=== PATIENT | male | born 1955 | race Caucasian/White ===

== ENCOUNTER 2016-10-30 23:18 | Emergency (ER) | payer MEDICARE ==
--- NOTE | 2016-10-31 01:39 | ED CLINICAL REPORT ---
Clinical Report - Physicians/Mid Levels [facility] [address] [place] [address] 10/30/2016 23:19 Patient: ARIELLA AYON Time Seen: 23:27. Arrived- By ambulance. Historian- patient and EMS personnel. HISTORY OF PRESENT ILLNESS Chief Complaint: BIZARRE BEHAVIOR. This occurred just prior to arrival. The symptoms are described as severe. The patient has been severely confused. (the patient's family report that he was recently hospitalized at [facility] for congestive heart failure. He was discharged home yesterday. His was speaking with him on the phone this evening and she said he seemed confused and was slurring his speech. She called her son went over there and her son says that he was saying odd things and did not recognize him. They're concerned that maybe he has overdosed on one of his medications. He apparently has been prescribed methadone as well as a muscle relaxant and a sleeping aid. His says that he is not always compliant with their use sometimes taking more tabletsthan he is supposed to work taking the medications more often than he ought. they are concerned that maybe he has overdosed.). REVIEW OF SYSTEMS Unobtainable due to patient's altered mental status. PAST HISTORY Problems: Possible dementia. Head Injury. Congestive Heart Failure. COPD - Chronic Obstructive Pulmonary Disease. Thrombocytopenia. Prediabetis . Hypertension . Depression . Asthma . Lumbar radicular pain . Hypotestosteronism. Back Pain. Back Injury. Medications: TiZANidine HCl Oral. Sertraline HCl Oral. Prochlorperazine Maleate Oral. Potassimin Oral. Theophylline Oral. Zofran Oral. Omeprazole Oral. Mirtazapine Oral. Metoprolol Tartrate Oral. Methadone HCl Oral. Lisinopril Oral. Furosemide Oral. CloNIDine HCl Oral. Allergies: Aspirin. Codeine. Morphine and Related. Nanproxyn. Tylenol. SOCIAL HISTORY Former smoker. FAMILY HISTORY Unable to obtain family medical history due to patient's altered mental status. ADDITIONAL NOTES The nursing notes have been reviewed. PHYSICAL EXAM Vital Signs: 10/30/2016 23:28 BP: 57/22. HR: 73. RR: 16. O2 saturation: 95%. Pain level now: 0/10. Appearance: Alert. He is somnolent, is confused, has slurred speech and appears frail and elderly. Eyes: Pupils equal, round and reactive to light. ENT: Pharynx normal. Neck: Neck supple. No meningeal signs or carotid bruit. CVS: Heart sounds normal. Respiratory: No respiratory distress. Decreased air movement. No rales or rhonchi. Abdomen: Soft and nontender. Skin: Skin warm and dry. Extremities: Bilateral 1+ pitting edema of the lower extremities involving both feet, both ankles and both lower legs. No calf tenderness. Neuro: Altered mental status: confused and disoriented to place and time. Inaccurate responses to questions and inconsistent responses to commands. Eyes open to pain. Best verbal response: inappropriate speech. Best motor response: localizes to pain. LABS, X-RAYS, AND EKG EKG: Right atrial enlargement. RBBB. Q waves in lead V1 and V2. T wave inversion in lead V1, V2, V3, V4 and V5. When compared to prior EKG, new ischemic changes present. (this is changed from a study of 25 October 2016 that was performed during his recent hospitalization at [facility].). Chest X-ray: Vascular congestion present (versus fibrosis). Mild cardiomegaly. (We'll positioned ET tube.). CT Head: No acute changes. The study was independently viewed by me. Laboratory Tests: Ammonia Level: (BIN: 10/31/2016 01:25) ( MsgRcvd 10/31/2016 01:48) Final results Test Result Flag Units (Reference) AMMONIA 17 umol/L (11-32) BNP: (BIN: 10/31/2016 00:01) ( MsgRcvd 10/31/2016 01:44) Final results Test Result Flag Units (Reference) B-TYPE NATRIURETIC PEPTIDE 719 H pg/ml (5-100) CPK: (BIN: 10/31/2016 00:01) ( MsgRcvd 10/31/2016 00:41) Final results Test Result Flag Units (Reference) CPK 61 U/L (24-260) TROPONIN I 0.11 ng/mL (0.00-1.5) TROPONIN REFERENCE RANGE:<0.1 NEGATIVE0.1-1.5 INDETERMINANT>1.5 POSITIVE ABG: (BIN: 10/31/2016 01:44) ( MsgRcvd 10/31/2016 01:58) Final results Test Result Flag Units (Reference) FIO2 30 % (20-101) ABG MODE OF DELIVERY AC MODIFIED ELAINE TEST POSITIVE? YES ABG VENT MODE AC ABG TIDAL VOLUME 500 cc ABG PATIENT RESP RATE 16 /MIN ABG RESP RATE SETTINGS 16 /MIN ARTERIAL BLOOD GAS PEEP 5 cmH2O ARTERIAL BLOOD GAS SITE RR ARTERIAL BLOOD GAS pH 7.37 (7.35-7.45) ABG PCO2 61.3 *H mmHg (35-45) ABG PO2 65.9 mmHg (60.0-80.0) ABG BASE EXCESS 8.8 *H mmol/L (-6.0--6.0) ABG HCO3 35.7 *H mmol/L (20.0-26.0) ABG TCO2 37.5 *H mmol/L (24.0-30.0) ABG LgXlX8p 76.2 H mmHg (7.0-14.0) *NOTE: Normal rangeis based on aFIO2 of 21% ABG SAT O2 92.8 L % (95.1-100.0) ABG TOTAL HEMOGLOBIN 16.2 g/dL (14.0-18.0) ABG O2 HEMOGLOBIN 90.7 L % (95.0-100.0) ABG CARBOXYHEMOGLOBIN 2.0 H % (0.5-1.5) ABG METHEMOGLOBIN 0.3 L % (0.4-1.5) ABG RHEMOGLOBIN 7.0 % ABG: (BIN: 10/31/2016 00:40) ( MsgRcvd 10/31/2016 00:42) Final results Test Result Flag Units (Reference) FIO2 100 % (20-101) ABG MODE OF DELIVERY AC MODIFIED ELAINE TEST POSITIVE? YES ABG VENT MODE AC ABG TIDAL VOLUME 500 cc ABG PATIENT RESP RATE 20 /MIN ABG RESP RATE SETTINGS 16 /MIN ARTERIAL BLOOD GAS PEEP 5 cmH2O ARTERIAL BLOOD GAS SITE RR ARTERIAL BLOOD GAS pH 7.30 L (7.35-7.45) ABG PCO2 66.7 *H mmHg (35-45) ABG PO2 499.0 *H mmHg (60.0-80.0) ABG BASE EXCESS 4.9 H mmol/L (-6.0--6.0) ABG HCO3 32.6 *H mmol/L (20.0-26.0) ABG TCO2 34.7 H mmol/L (24.0-30.0) ABG ItClU1i 134.9 H mmHg (7.0-14.0) *NOTE: Normal rangeis based on aFIO2 of 21% ABG SAT O2 100.7 H % (95.1-100.0) ABG TOTAL HEMOGLOBIN 15.2 g/dL (14.0-18.0) ABG O2 HEMOGLOBIN 99.0 % (95.0-100.0) ABG CARBOXYHEMOGLOBIN 1.7 H % (0.5-1.5) ABG METHEMOGLOBIN 0.0 L % (0.4-1.5) ABG RHEMOGLOBIN -0.7 % UA-Culture if indicated: (BIN: 10/30/2016 23:55) ( MsgRcvd 10/31/2016 00:25) Final results Test Result Flag Units (Reference) URINE COLOR YELLOW URINE APPEARANCE CLEAR URINE GLUCOSE NEGATIVE (NEGATIVE) URINE BILIRUBIN NEGATIVE (NEGATIVE) URINE KETONE NEGATIVE (NEGATIVE) URINE SPECIFIC GRAVITY 1.010 (1.010-1.030) URINE PH 5.5 (5.0-8.0) URINE PROTEIN NEGATIVE (NEGATIVE) URINE UROBILINOGEN 0.2 EU/dL (0.2-1.0) URINE NITRITE NEGATIVE (NEGATIVE) URINE BLOOD TRACE-LYSED (NEGATIVE) URINE LEUK ESTERASE NEGATIVE (NEGATIVE) URINE RBC 0-1 rbc/hpf (0-1) URINE WBC NONE SEEN wbc/hpf (0-1) URINE EPITHELIAL CELLS 0-1 EPI/hpf (0-5) URINE BACTERIA NONE SEEN (NONE SEEN) URINE COMMENT CULT NOT INDICATED URINE CULTURES ARE SET-UP BASED ON THE FOLLOWING CRITERIA:POSITIVE NITRITEPOSITIVE LEUKOCYTE ESTERASEGREATER THAN 10 WHITE BLOOD CELLSMODERATE (2+) OR GREATER BACTERIA CBC w Diff: (BIN: 10/30/2016 23:35) ( [facility] 10/30/2016 23:53) Final results Test Result Flag Units (Reference) WHITE BLOOD COUNT 9.0 K/uL (4.5-11.5) RED BLOOD COUNT 4.78 M/uL (4.50-5.90) HEMOGLOBIN 15.8 gm/dL (13.5-17.5) HEMATOCRIT 48.1 % (41.0-53.0) MEAN CELL VOLUME 101 H fL (80-100) MEAN CORPUSCULAR HGB 33 pg (26-34) MEAN CORPUSCULAR HGB CONC 33 g/dL (31-37) RED CELL DISTRIBUTION WIDTH 16.0 H % (11.6-14.8) PLATELET COUNT 118 L K/uL (150-400) LYMPH % 22.7 L % (25-40) MONO % 4.4 % (3-14) GRANULOCYTE % 72.9 Urine Drug Screen: (BIN: 10/30/2016 23:55) ( [facility] 10/31/2016 00:21) Final results Test Result Flag Units (Reference) AMPHETAMINE/METHAMPHETAMINE NEGATIVE (NEGATIVE) BARBITURATE NEGATIVE (NEGATIVE) BENZODIAZEPINE NEGATIVE (NEGATIVE) CANNABINOID NEGATIVE (NEGATIVE) COCAINE NEGATIVE (NEGATIVE) ECSTASY NEGATIVE (NEGATIVE) METHADONE NEGATIVE (NEGATIVE) OPIATE NEGATIVE (NEGATIVE) The urine drug screen is a qualitative screening test fordrug overdose and abuse. All screen results should beconsidered as presumptive.Drugs screened for are as follows:BenzodiazepinesCocaineAmphetamines/MetamphetaminesTHC (Tetrahydrocannabinol)OpiatesBarbituratesEcstasyMethadonePositive results are unconfirmed. For confirmation, notifythe lab for the specimen to be sent to the reference lab.All confirmations must be performed by a differentmethodology.The ingestion of natural herbal and plant productscontaining Ephedra/Ephedra metabolites can produce in urineone or more substances capable of cross reacting withamphetamine/methamphetamine immunoassays. These testsprovide a preliminary result only. A more specificalternative chemical method must be used to obtain aconfirmed analytical result. CMP: (BIN: 10/30/2016 23:35) ( MsgRcvd 10/31/2016 00:06) Final results Test Result Flag Units (Reference) GLUCOSE 156 H mg/dL (70-110) BUN 57 H mg/dL (7-18) CREATININE 1.7 H mg/dL (0.6-1.3) Estimated GFR 43.48 mL/min Estimated GFR- 52.70 mL/min Note: Persistent reduction over 3 months in eGFR<60 mL/min/1.73 m2 defines CKD. Patients with eGFR values>=60 mL/min/1.73 m2 may also have CKD if evidence ofpersistent proteinuria. Additional information may be foundat www.[email or web address].org. SODIUM 132 L mmol/L (136-145) POTASSIUM 4.9 mmol/L (3.5-5.1) CHLORIDE 97 L mmol/L (98-107) CARBON DIOXIDE 32 mmol/L (21-32) CALCIUM 8.9 mg/dL (8.5-10.1) TOTAL PROTEIN 6.9 g/dL (6.4-8.2) ALBUMIN 3.0 L g/dL (3.3-5.0) BILIRUBIN, TOTAL 0.5 mg/dL (0.0-1.0) ALKALINE PHOSPHATASE 79 U/L (46-116) AST (SGOT) 49 H U/L (15-37) ALT (SGPT) 28 U/L (12-78) LIPASE 474 H U/L (73-393) AMYLASE 78 U/L (25-115) ETHYL ALCOHOL <3 L mg/dL (3-10) . PROGRESS AND PROCEDURES Intubation: Time-out completed immediately before the procedure. Intubated with 8.0 cuffed endotracheal tube. Head placed in neutral position. Preoxygenated. Hyperventilated. Intubated via orotracheal route. Premedicated with midazolam. Administered induction agent- ketamine and neuromuscular blocking agent- succinylcholine. No complications. Placement confirmed by direct visualization, equal breath sounds and rise and fall of chest wall and ET tube CO2 detection device. Tube secured with device. Suctioning performed. Connected to ventilator. A chest x-ray was obtained: showing good tube position. Tube marked at teeth (20 cm). Technique: direct visualization and video assisted. Procedure successful; one attempt. Course of Care: As noted on arrival in the emergency room he appeared to be hypotensive. He was bolused with 2 L of normal saline. There was only nominal change in his blood pressure with this. However, given his history of congestive heart failure I did not want to be too aggressive with IV fluids. He was initiated on a dopamine drip with improvement in his blood pressure. However, during his time in the emergency room his respiratory status worsened. He became hypoxic on the oximeter. And his respiratory rate decreased to 6 breaths per minute per my observation. These breaths were shallow as well. It was noted that his toxicology screen was negative. Therefore I did not feel there was any advantage to the use of Narcan or Romazicon. Therefore I intubated the patient. Please see the above notes for details of that procedure. We continued to observe the patient here in the emergency room while arrangements were made for transfer. He was treated with several doses of ketamine in addition to Versed. However during his time here in the ER, he became more alert and demonstrated purposeful movement. He appeared to be breathing over the ventilator. I subsequently extubated him and he tolerated this well. Initially arrangements have been made to transfer the patient to [facility] in [place]. However, the patient's family adamantly refused for him to be transferred there. They wished that he be transferred back to [facility]. However there are no beds available there. Therefore I discussed the case with the personal banking officer at [facility], Dr. Martini and the patient will be transferred there. Critical care performed (120 minutes). Time includes: direct patient care, patient reassessment, coordination of patient care, interpretation of data (laboratory data, pulse oximetry, arterial blood gases and chest xrays), review of patient's medical records, medical consultation, family consultation regarding treatment decisions and documentation of patient care. Procedures excluded from critical care time: intubation and electrocardiography. Discussed case with health care provider (Vini - Manager Compliance at [facility]). Patient/family counseled. Old medical records reviewed. (from his recent hospitalization at [facility]. He was discharged yesterday). Disposition: Benefits, risks and alternatives to transfer explained to family. Transferred to [facility]. CLINICAL IMPRESSION Changed mental status. Respiratory failure with hypoxemia and hypercapnia. Congestive heart failure. Hypotension. Renal insufficiency. (Electronically signed by Ceferino Shannon MD 10/31/2016 23:10)
--- NOTE | 2016-10-31 01:39 | ED ORDER SUMMARY ---
..... Patient: ARIELLA AYON OrderSheet [facility] VisitID: [id number] [address] [place] [address] 61y, M Registration Date/Time: 10/30/2016 ORDER SHEET Weight: 71.6 kg (stated) Allergies: Aspirin, Codeine, Morphine and Related, Nanproxyn, Tylenol GENERAL ORDERS: Instructional Facilitator (Continuous) (:10/30/2016 Jaimee BAEZA) (23:38 RCollier R.N.) CBC w Diff Urgent (:10/30/2016 Jaimee BAEZA) (Ack 23:30 CHagerty ER Analytical Tech) (1:36 RCollier R.N.) CMP Urgent (:10/30/2016 Jaimee BAEZA) (Ack 23:30 CHagerty ER Analytical Tech) (1:36 RCollier R.N.) UA-Culture if indicated Urgent (:10/30/2016 Jaimee BAEZA) (Ack 23:30 CHagerty ER Analytical Tech) (1:36 RCollier R.N.) Amylase Urgent (:10/30/2016 Jaimee BAEZA) (Ack 23:30 CHagerty ER Analytical Tech) (1:36 RCollier R.N.) Lipase Urgent (:10/30/2016 Jaimee BAEZA) (Ack 23:30 CHagerty ER Analytical Tech) (1:36 RCollier R.N.) Urine Drug Screen Urgent (:10/30/2016 Jaimee BAEZA) (Ack 23:30 CHagerty ER Analytical Tech) (1:36 RCollier R.N.) Ethyl Alcohol Urgent (:10/30/2016 Jaimee BAEZA) (Ack 23:30 CHagerty ER Analytical Tech) (1:36 RCollier R.N.) Oxygen (2 L/min) (NC) (:10/30/2016 Jaimee BAEZA) (23:38 RCollier R.N.) Pulse oximeter (:10/30/2016 Jaimee BAEZA) (23:38 RCollier R.N.) EKG - ER Stat (:10/30/2016 Jaimee BAEZA) (23:50 Chuck) CPK Urgent (00:08 10/31/2016 RCollier R.N. verbal order read back to Jaimee BAEZA) (Ack 0:13 CHagerty ER Analytical Tech) (1:36 RCollier R.N.) Troponin-I Urgent (00:08 10/31/2016 RCollier R.N. verbal order read back to Jaimee BAEZA) (Ack 0:13 CHagerty ER Analytical Tech) (1:36 RCollier R.N.) Chest 1V Urgent (00:13 10/31/2016 CHagerty ER Analytical Tech per protocol) (Ack 0:15 CHagerty ER Analytical Tech) (0:30 GUnger) CT Head wo Cont Urgent (00:27 10/31/2016 Jaimee BAEZA) (Ack 0:30 CHagerty ER Analytical Tech) (1:08 GUnger) ABG (G) Urgent (00:40 10/31/2016 CHagerty ER Analytical Tech verbal order read back to Jaimee BAEZA) (Ack 0:44 CHagerty ER Analytical Tech) (1:36 RCollier R.N.) Ammonia Level Urgent (00:45 10/31/2016 Jaimee BAEZA) (Ack 0:53 CHagerty ER Analytical Tech) (1:36 RCollier R.N.) BNP Urgent (00:45 10/31/2016 Jaimee BAEZA) (Ack 0:53 CHagerty ER Analytical Tech) (1:36 RCollier R.N.) ABG (G) Urgent (01:44 10/31/2016 CHagerty ER Analytical Tech verbal order read back to Jaimee BAEZA) (Ack 1:45 CHagerty ER Analytical Tech) (3:29 CHagerty ER Analytical Tech) MEDICATION ORDERS: IV FLUIDS: IV NS : initial bolus 500 mL (1000 mL/hr), then 125 mL/hr for 4h (NOW); Urgent (23:28 10/30/2016 Jaimee BAEZA) (23:37 RCollier R.N.) IV Saline Lock (23:10/30/2016 Jaimee BAEZA) (Ack 23:37 RCollier R.N.) (1:47 DDavis R.N.) Succinylcholine IV 70mg (HIGH ALERT MEDICATION) (01:22 10/31/2016 RCaleksier R.N. verbal order read back to Jaimee BAEZA) (1:25 RCollier R.N.) DOPamine Drip IV : 10 mcg/kg/min (HIGH ALERT MEDICATION) (01:23 10/31/2016 RCollier R.N. verbal order read back to Jaimee BAEZA) (1:28 RCollier R.N.) Versed IV 2 mg (HIGH ALERT MEDICATION) (01:10/31/2016 RCaleksier R.N. verbal order read back to Jaimee BAEZA) (1:28 RCollier R.N.) Ketamine IV 70 mg (HIGH ALERT MEDICATION) (01:24 10/31/2016 RCaleksier R.N. verbal order read back to Jaimee BAEZA) (1:29 RCollier R.N.) Ketamine IV 70 mg (HIGH ALERT MEDICATION) (01:24 10/31/2016 RCaleksier R.N. verbal order read back to Jaimee BAEZA) (1:30 RCollier R.N.) Ketamine IV 70 mg (HIGH ALERT MEDICATION) (01:30 10/31/2016 RCaleksier R.N. verbal order read back to Jaimee BAEZA) (1:31 RCollier R.N.) Versed IV 2 mg (HIGH ALERT MEDICATION) (01:32 10/31/2016 RCaleksier R.N. verbal order read back to Jaimee BAEZA) (1:36 RCollier R.N.) Ketamine IV 70 mg (HIGH ALERT MEDICATION) (01:56 10/31/2016 RCaleksier R.N. verbal order read back to Jaimee BAEZA) (1:57 RCollier R.N.) Ketamine IV 70 mg (HIGH ALERT MEDICATION, NOW) (02:24 10/31/2016 Isaías R.N. verbal order read back to Jaimee BAEZA) (2:43 Isaías R.N.) Zofran IV 4 mg (NOW) (04:21 10/31/2016 Robertier R.N. verbal order read back to Jaimee BAEZA) (4:22 RCollier R.N.) ORDER SHEET NOTES: [Electronically signed by Peggy Rey R.N. (04:53 10/31/2016)] [Electronically signed by Ceferino Shannon MD (23:10 10/31/2016)] [Electronically locked/signed by Peggy Rey R.N. (04:53 10/31/2016)]
--- NOTE | 2016-10-31 01:39 | ED NURSING NOTES ---
Clinical Report - Nurses [address] [place] [address] 10/30/2016 23:19 Patient: ARIELLA AYON [facility]#: [id number] TRIAGE Triage time 23:28. Chief Complaint: ALTERED MENTAL STATUS. KAYLA COMA SCORE: Kayla Coma Scale: 15- eyes open spontaneously (4); best verbal response- oriented x 4 (5); best motor response- obeys commands (6). --23:34 Peggy Rey R.N. 23:28 10/30/16. BP: 57/22 taken while lying. HR: 73. RR: 16. O2 saturation: 95% on room air. Pain level now: 0/10. --23:34 Peggy Rey R.N. Weight: 71.6 kg stated. Height/Length: 68 inches Per Patient. BMI: 24. --23:32 Peggy Rey R.N. Medications CloNIDine HCl Oral. --23:29 Peggy Rey R.N. Furosemide Oral. --23:29 Peggy Rey R.N. Lisinopril Oral. --23:29 Peggy Rey R.N. Methadone HCl Oral. --23:29 Peggy Rey R.N. Metoprolol Tartrate Oral. --23:29 Peggy Rey R.N. Mirtazapine Oral. --23:29 Peggy Rey R.N. Omeprazole Oral. --23:30 Peggy Rey R.N. Zofran Oral. --23:30 Peggy Rey R.N. Theophylline Oral. --23:30 Peggy Rey R.N. Potassimin Oral. --23:30 Peggy Rey R.N. Prochlorperazine Maleate Oral. --23:30 Peggy Rey R.N. Sertraline HCl Oral. --23:30 Peggy Rey R.N. TiZANidine HCl Oral. --23:30 Peggy Rey R.N. Allergies Aspirin. Codeine. Morphine and Related. Nanproxyn. Tylenol. --23:29 Peggy Rey R.N. History Arrived by EMS. This started today. 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 --23:34 Peggy Rey R.N. PROBLEMS: Thrombocytopenia. Prediabetis . Hypertension . Depression . Asthma . Lumbar radicular pain . Hypotestosteronism. Back Pain. Back Injury. --23:31 Peggy Rey R.N. Back Pain [RuleOut]. --23:31 Peggy Rey R.N. NURSING PROGRESS NOTES ( due to low BP reading, pt placed in trendelenburg position and 2nd IV obtained.). --23:35 Peggy Rey R.N. Two patient identifiers checked. Call light placed in reach. Side rails up x 2. Bed placed in lowest position. Brakes of bed on. --23:35 Peggy Rey R.N. Patient ready for evaluation- chart flagged. --23:35 Peggy Rey R.N. 23:36 10/30/2016 Site #1 started prior to arrival by EMS via IV in the right hand with an 22g angiocath, with aseptic technique and good blood return (1000ml NS hanging upon arrival to ED. bag opeded to rate of 2000ml/hr upon arrival due to low BP reading). --23:36 Peggy Rey R.N. 23:36 10/30/2016 Site #2 started via IV in the left antecubital space with an 20g angiocath, with aseptic technique and good blood return; one attempt. Blood drawn: rainbow set. Labeled in the presence of the patient and sent to the lab. Saline lock flushed with 10 mL saline (Started by SHIRLEY Blackwell). --23:37 Peggy Rey R.N. 23:37 10/30/2016 Started bag #1 1000 mL IV Fluids IV NS (Saline); at 2000 mL/hr via site #1 via IV pump. Allergies verified and confirmed 5 rights. IV patency established. IV site checked: no pain, redness, or swelling. IV flushed thoroughly pre- and post-medication administration. --23:37 Peggy Rey R.N. 23:40 10/30/16. BP: 55/24. HR: 72. RR: 17. O2 saturation: 94% on nasal cannula at 4 liters/minute. --23:40 Peggy Rey R.N. 23:46- IV NS bag #2 rate changed. Placed on pressure bag, per verbal from EDMD. 500ml remaining to be infused over next 15min. --23:47 Peggy Rey R.N. 23:47 10/30/16. BP: 76/47. HR: 70. RR: 15. O2 saturation: 93% on nasal cannula at 3 liters/minute. --23:47 Peggy Rey R.N. cath done by SHIRLEY Carbajal. 16 fr in/out catheterization. Reason for indwelling catheter: patient's decreased level of consciousness. During procedure hand hygiene observed and sterile equipment and aseptic technique used. Return of yellow-colored clear urine. He tolerated procedure well. --23:54 Peggy Rey R.N. Patient ID band checked for patient name and birthdate: patient confirmed. Catheterized urine collected with return of yellow-colored clear urine; sample sent to lab. Specimen labeled in the presence of the patient (colected and sent by SHIRLEY Carbajal). --23:55 Peggy Rey R.N. 23:45 10/30/2016 Started bag #2 1000 mL IV Fluids IV NS (Saline); at 1000 mL/hr via site #1 via IV pump. Allergies verified and confirmed 5 rights. IV patency established. IV site checked: no pain, redness, or swelling. IV flushed thoroughly pre- and post-medication administration (bag #2 started by EMS, placed on IV pump at rate of 1000ml/hr (total amount infused at this time is 450ml)). --23:58 Peggy Rey R.N. 23:56 10/30/2016 IV Fluids IV NS Discontinued: bag #1 completed. Total amount infused: 1000 mL. IV patency established. IV site checked: no pain, redness, or swelling. IV flushed thoroughly. --23:56 Peggy Rey R.N. EKG time: (2345 PM). EKG was ordered, performed by a tech and shown to the ED physician. --00:00 Lilia Anderson 00:11 late entry -. INTUBATION: Intubation performed by ED physician. Assisted by two nurses and techs and respiratory therapist. Preparation: pulse oximeter, teletypesetter monitor and NIBP monitor applied, oxygen administration, BVM, suction and intubation tray at bedside, IV established, pre-oxygenated and hyperventilated. Procedure: 8.0 fr ETT via oral route. Proper airway placement confirmed by equal breath sounds, equal rise and fall of chest, rising O2 sats, CO2 detector. Post-procedure: he was stable, tube secured (20 cm at lip), suctioning performed, connected to ventilator and bagged w/ BVM. CXR interpreted per physician revealed good tube position. Total time of assist / procedure: 30 minutes. --01:13 Peggy Rey R.N. 00:15 10/31/16. BP: 53/34. HR: 70. RR: 11. --01:14 Peggy Rey R.N. 00:17 10/31/16. BP: 90/76. HR: 76. RR: 15. --01:14 Peggy Rey R.N. 00:20 10/31/16. BP: 103/62. HR: 82. RR: 12. O2 saturation: 100% on ventilator. --01:15 Peggy Rey R.N. 00:28 10/31/16. BP: 108/50. HR: 87. RR: 18. O2 saturation: 100% on ventilator. --01:15 Peggy Rey R.NYvon 00:34- RT obtaining ABG. --01:18 Peggy Rey R.NYvon 00:35 late entry -. 18 fr orogastric tube inserted with minimal difficulty. Placement confirmed by auscultation. Return: clear, brown fluid. Attached to low and intermittent suction. Patient tolerated procedure well. (65 at teeth). --01:19 Rey, Peggy, R.N. 12:23 late entry -. Portable chest x-ray performed and shown to the ED physician. --01:13 Peggy Rey R.N. Patient transported to CT by stretcher with O2, monitor, nurse and tech. (0050). --01:19 Pgegy Rey R.N. Patient returned from CT by stretcher with O2, monitor, nurse and tech. ([id number]). --01:20 Peggy Rey R.N. 00:41 10/31/16. BP: 106/63. HR: 108. RR: 16. O2 saturation: 100% on ventilator. --01:20 Peggy Rey R.N. 01:07 10/31/16. BP: 112/72. HR: 108. RR: 16. O2 saturation: 100% on ventilator. --01:21 Peggy Rey R.N. 01:21 10/31/16. BP: 112/65. HR: 114. RR: 16. O2 saturation: 100% on ventilator. --01:21 Peggy Rey R.N. 00:15 10/31/2016 Succinylcholine IVP 70 mg given. via site #2. Allergies verified and confirmed 5 rights. IV patency established. IV site checked: no pain, redness, or swelling. IV flushed thoroughly pre- and post-medication administration. IVP given by RN (given by Bhavna Jain RN). --01:25 Peggy Rey R.N. 00:23 10/31/2016 Versed (Midazolam HCl) IVP 2 mg given over 30 second(s) via site #2. Allergies verified, confirmed 5 rights and sedative warning given to the patient. IV patency established. IV site checked: no pain, redness, or swelling. IV flushed thoroughly pre- and post-medication administration. IVP given by RN (given by Bhavna Jain RN). --01:28 Peggy Rey R.N. 00:33 10/31/2016 Ketamine IVP 70 mg given over 30 second(s) via site #2. Allergies verified, confirmed 5 rights and sedative warning given to the patient. IV patency established. IV site checked: no pain, redness, or swelling. IV flushed thoroughly pre- and post-medication administration. IVP given by RN. --01:29 Peggy Rey R.NYvon 00:57 10/31/2016 Ketamine IVP 70 mg given over 30 second(s) via site #2. Allergies verified, confirmed 5 rights and sedative warning given to the patient. IV patency established. IV site checked: no pain, redness, or swelling. IV flushed thoroughly pre- and post-medication administration. IVP given by RN (given by SHIRLEY Carbajal). --01:31 Peggy Rey R.NYvon 01:12 10/31/2016 Ketamine IVP 70 mg given over 30 second(s) via site #2. Allergies verified, confirmed 5 rights and sedative warning given to the patient. IV patency established. IV site checked: no pain, redness, or swelling. IV flushed thoroughly pre- and post-medication administration. IVP given by RN. --01:30 Peggy Rey R.N. 01:36 10/31/2016 Versed (Midazolam HCl) IVP 2 mg given over 60 second(s) via site #1. Allergies verified, confirmed 5 rights and sedative warning given to the patient. IV patency established. IV site checked: no pain, redness, or swelling. IV flushed thoroughly pre- and post-medication administration. IVP given by RN. --01:36 Peggy Rey R.NYvon 01:42 10/31/2016 Site #3 started via IV in the right antecubital space with an 20g angiocath; one attempt. Blood drawn: rainbow set. Labeled in the presence of the patient and sent to the lab. Saline lock flushed with saline. --01:47 Angelito Nieves R.N. 01:57 10/31/2016 Ketamine IVP 70 mg given over 30 second(s) via site #3. Sedative warning given to the patient. IV patency established. IV site checked: no pain, redness, or swelling. IV flushed thoroughly pre- and post-medication administration. IVP given by RN. --01:57 Peggy Rey R.N. 02:38 10/31/2016 Ketamine IVP 70 mg given over 2 minute(s) via site #3. Allergies verified, confirmed 5 rights and sedative warning given to the patient's family. IV patency established. IV site checked: no pain, redness, or swelling. IV flushed thoroughly pre- and post-medication administration (Given per Dr. Shannon, for patient anxiety, coughing, and facilitating ventilations on ventilator.). --02:43 Angelito Nieves R.N. 12:12 10/31/2016 Started 4000 mcg of Dopamine Drip IV in bag #1 250 mL; at 10 mcg/kg/min via site #1 via IV pump. Allergies verified and confirmed 5 rights. IV patency established. IV site checked: no pain, redness, or swelling. IV flushed thoroughly pre- and post-medication administration (started by SHIRLEY Stanton). --01:28 Peggy Rey R.N. 02:58 10/31/16. BP: 124/80. HR: 119. RR: 16. O2 saturation: 99% on ventilator. --02:58 Peggy Rey R.N. ( Pt calm and tolerating intubation well, daughter at bedside. Pt able to communicate with daughter by squeezing hand and nodding.). --03:01 Peggy Rey R.N. Restraint Flowsheet 12:25- Orders obtained, signed by EDMD & RN. He has demonstrated non-violent behavior including unconsciousness that requires restraints. Applied right and left wrist restraints. (soft restraints). Observed by a nurse. Assessment: airway- patient is intubated; mental status- patient is sedated; indwelling lines / tubes- performing without impedence of flow. Restraints are properly applied. Interventions: unable to perform interventions at this time due to patient status. --01:17 Peggy Rey R.N. DISPOSITION / DISCHARGE 04:04 10/31/16. BP: 104/50. HR: 112. RR: 16 (unlabored). O2 saturation: 94% on nasal cannula at 3 liters/minute. --04:08 Peggy Rey R.N. 04:10/31/2016 Site #[address] upon admission. --04:09 Peggy Rey R.N. 04:10/31/2016 Site #[address] upon admission. --04:09 Peggy Rey R.N. 04:09 10/31/2016 Site #[address] upon admission. --04:09 Peggy Rey R.N. Transferred to [facility]. Summary of care provided to transport team and EMS via paper (Zoey Bustillos). Patient's personal items include: shirt, pants, undergarments and glasses; items were placed in belongings bag and given to the spouse. Collection of belongings was witnessed by 1 nurse. --04:16 Peggy Rey R.N. 04:22 10/31/2016 Zofran (Ondansetron HCl) IVP 4 mg given over 30 second(s) via site #2. Allergies verified and confirmed 5 rights. IV patency established. IV site checked: no pain, redness, or swelling. IV flushed thoroughly pre- and post-medication administration. IVP given by RN. --04:22 Peggy Rey R.N. Locked/Released at 10/31/2016 4:53 by Peggy Rey R.N.
--- NOTE | 2016-10-31 01:39 | ED ORDER SUMMARY ---
..... Patient: ARIELLA AYON [facility] VisitID: [id number] [address] [place] [address] 61y, M Registration Date/Time: 10/30/2016 ORDER SHEET Weight: 71.6 kg (stated) Allergies: Aspirin, Codeine, Morphine and Related, Nanproxyn, Tylenol GENERAL ORDERS: Tip Out Worker (Continuous) (:10/30/2016 Jaimee ABEZA) (23:38 RCollier R.N.) CBC w Diff Urgent (:10/30/2016 Jaimee BAEZA) (Ack 23:30 CHagerty ER Metal Mold Dresser) (1:36 RCollier R.N.) CMP Urgent (:10/30/2016 Jaimee BAEZA) (Ack 23:30 CHagerty ER Metal [employer] Dresser) (1:36 RCollier R.N.) UA-Culture if indicated Urgent (:10/30/2016 Jaimee BAEZA) (Ack 23:30 CHagerty ER Metal Mold Dresser) (1:36 RCollier R.N.) Amylase Urgent (:10/30/2016 Jaimee BAEZA) (Ack 23:30 CHagerty ER Metal Mold Dresser) (1:36 RCollier R.N.) Lipase Urgent (:10/30/2016 Jaimee BAEZA) (Ack 23:30 CHagerty ER Metal Mold Dresser) (1:36 RCollier R.N.) Urine Drug Screen Urgent (:10/30/2016 Jaimee BAEZA) (Ack 23:30 CHagerty ER Metal Mold Dresser) (1:36 RCollier R.N.) Ethyl Alcohol Urgent (:10/30/2016 Jaimee BAEZA) (Ack 23:30 CHagerty ER Metal Mold Dresser) (1:36 RCollier R.N.) Oxygen (2 L/min) (NC) (:10/30/2016 Jaimee BAEZA) (23:38 RCollier R.N.) Pulse oximeter (:10/30/2016 Jaimee BAEZA) (23:38 RCollier R.N.) EKG - ER Stat (:10/30/2016 Jaimee BAEZA) (23:50 Chuck) CPK Urgent (00:08 10/31/2016 RCollier R.N. verbal order read back to Jaimee BAEZA) (Ack 0:13 CHagerty ER Metal Mold Dresser) (1:36 RCollier R.N.) Troponin-I Urgent (00:08 10/31/2016 RCollier R.N. verbal order read back to Jaimee BAEZA) (Ack 0:13 CHagerty ER Metal Mold Dresser) (1:36 RCollier R.N.) Chest 1V Urgent (00:13 10/31/2016 CHagerty ER Metal Mold Dresser per protocol) (Ack 0:15 CHagerty ER Metal Mold Dresser) (0:30 GUnger) CT Head wo Cont Urgent (00:27 10/31/2016 Jaimee BAEZA) (Ack 0:30 CHagerty ER Metal Mold Dresser) (1:08 GUnger) ABG (G) Urgent (00:40 10/31/2016 CHagerty ER Metal Mold Dresser verbal order read back to Jaimee BAEZA) (Ack 0:44 CHagerty ER Metal Mold Dresser) (1:36 RCollier R.N.) Ammonia Level Urgent (00:45 10/31/2016 Jaimee BAEZA) (Ack 0:53 CHagerty ER Metal Mold Dresser) (1:36 RCollier R.N.) BNP Urgent (00:45 10/31/2016 Jaimee BAEZA) (Ack 0:53 CHagerty ER Metal Mold Dresser) (1:36 RCollier R.N.) ABG (G) Urgent (01:44 10/31/2016 CHagerty ER Metal Mold Dresser verbal order read back to Jaimee BAEZA) (Ack 1:45 CHagerty ER Metal Mold Dresser) (3:29 CHagerty ER Metal Mold Dresser) MEDICATION ORDERS: IV FLUIDS: IV NS : initial bolus 500 mL (1000 mL/hr), then 125 mL/hr for 4h (NOW); Urgent (23:28 10/30/2016 Jaimee BAEZA) (23:37 RCollier R.N.) IV Saline Lock (23:10/30/2016 Jaimee BAEZA) (Ack 23:37 RCollier R.N.) (1:47 DDavis R.N.) Succinylcholine IV 70mg (HIGH ALERT MEDICATION) (01:22 10/31/2016 RCaleksier R.N. verbal order read back to Jaimee BAEZA) (1:25 RCollier R.N.) DOPamine Drip IV : 10 mcg/kg/min (HIGH ALERT MEDICATION) (01:23 10/31/2016 RCollier R.N. verbal order read back to Jaimee BAEZA) (1:28 RCollier R.N.) Versed IV 2 mg (HIGH ALERT MEDICATION) (01:10/31/2016 RCaleksier R.N. verbal order read back to Jaimee BAEZA) (1:28 RCollier R.N.) Ketamine IV 70 mg (HIGH ALERT MEDICATION) (01:24 10/31/2016 RCaleksier R.N. verbal order read back to Jaimee BAEZA) (1:29 RCollier R.N.) Ketamine IV 70 mg (HIGH ALERT MEDICATION) (01:24 10/31/2016 RCaleksier R.N. verbal order read back to Jaimee BAEZA) (1:30 RCollier R.N.) Ketamine IV 70 mg (HIGH ALERT MEDICATION) (01:30 10/31/2016 RCaleksier R.N. verbal order read back to Jaimee BAZEA) (1:31 RCollier R.N.) Versed IV 2 mg (HIGH ALERT MEDICATION) (01:32 10/31/2016 RCaleksier R.N. verbal order read back to Jaimee BAEZA) (1:36 RCollier R.N.) Ketamine IV 70 mg (HIGH ALERT MEDICATION) (01:56 10/31/2016 RCaleksier R.N. verbal order read back to Jaimee BAEZA) (1:57 RCollier R.N.) Ketamine IV 70 mg (HIGH ALERT MEDICATION, NOW) (02:24 10/31/2016 Isaías R.N. verbal order read back to Jaimee BAEZA) (2:43 Isaías R.N.) Zofran IV 4 mg (NOW) (04:21 10/31/2016 Robertier R.N. verbal order read back to Jaimee BAEZA) (4:22 RCollier R.N.) ORDER SHEET NOTES: [Electronically signed by Peggy Rey R.N. (04:53 10/31/2016)] [Electronically signed by Ceferino Shannon MD (23:10 10/31/2016)] [Electronically locked/signed by Peggy Rey R.N. (04:53 10/31/2016)]
--- NOTE | 2016-10-31 05:35 | DIAGNOSTIC IMAGING REPORT ---
PROCEDURE: CT HEAD WITHOUT CONTRAST INDICATION: HEADACHE TECHNIQUE: Noncontrast axial images with sagittal and coronal reformations. Preliminary report provided by Swati Mcgarry MD ([facility]). COMPARISON: None. FINDINGS: Mild motion. Allowing for motion, brain and ventricles are within normal limits with mild atrophic changes. No evidence of an acute process or hemorrhage. Sinuses and mastoids are normal. ET tube is in position (partially visualized). IMPRESSION: 1. Negative head CT. 2. Preliminary report provided to Dr. Shannon. All CT scans at this facility use dose modulation, iterative reconstruction, and/or weight-based dosing when appropriate to reduce radiation dose to as low as reasonably achievable.
--- NOTE | 2016-10-31 11:38 | DIAGNOSTIC IMAGING REPORT ---
PROCEDURE: XR CHEST 1 VIEW INDICATION: Respiratory failure. Intubation. TECHNIQUE: Portable AP view (0220 hours). COMPARISON: None. FINDINGS: ET tube has been placed 1 HU in satisfactory position (6 cm above tre). There are moderate increased parenchymal changes in the upper lungs, right greater than left) with elevation of the elba. Lower lungs are clear. Mild cardiomegaly. There is enlargement of the of the main pulmonary artery and central pulmonary vessels. There is an old right clavicle fracture. Thorax is otherwise normal. IMPRESSION: 1. Placement of ET tube in satisfactory position (6 cm above tre). 2. Moderate parenchymal changes in the upper lungs (right greater than left) with elevation of the elba. While findings could represent chronic scarring from old granulomatous disease, acute pneumonia (e.g., aspiration, bacterial) could also have this appearance. 3. Enlargement of the main and central pulmonary arteries suggest pulmonary arterial hypertension.
--- NOTE | 2016-10-31 23:10 | ED MED RECONCILIATION SUMMARY ---
Patient: ARIELLA AYON Medication Reconciliation Report [facility] VisitID: [id number] [address] [place] [address] 61y, M Registration Date/Time: 10/30/2016 Weight: 71.6 kg Height/Length: 68 in. BMI: 24.0 ALLERGIES: Aspirin, Codeine, Morphine and Related, Nanproxyn, Tylenol The patient's Home Medications are listed below: THE FOLLOWING MEDICATIONS NEED TO BE RECONCILED: CloNIDine HCl Oral Furosemide Oral Lisinopril Oral Methadone HCl Oral Metoprolol Tartrate Oral Mirtazapine Oral Omeprazole Oral Potassimin Oral Prochlorperazine Maleate Oral Sertraline HCl Oral Theophylline Oral TiZANidine HCl Oral Zofran Oral The source(s) of the original Home Medication information: Not obtained. The following Medications were given to the patient in the Emergency Department: IV NS IV Fluids bolus 0, then 2000 mL/hr, administered: 10/30/2016 11:37:00 PM IV NS IV Fluids bolus 0, then 1000 mL/hr, administered: 10/30/2016 11:45:00 PM Succinylcholine [IVP] IVP 70 mg, administered: 10/31/2016 12:15:00 AM Dopamine [IV Drip] Drip IV bolus 0, then 4000 mcg 10 mcg/kg/min, administered: 10/31/2016 12:12:00 PM Versed [IVP] IVP 2 mg, administered: 10/31/2016 12:23:00 AM Ketamine [IVP] IVP 70 mg, administered: 10/31/2016 12:33:00 AM Ketamine [IVP] IVP 70 mg, administered: 10/31/2016 1:12:00 AM Ketamine [IVP] IVP 70 mg, administered: 10/31/2016 12:57:00 AM Versed [IVP] IVP 2 mg, administered: 10/31/2016 1:36:00 AM Ketamine [IVP] IVP 70 mg, administered: 10/31/2016 1:57:00 AM Ketamine [IVP] IVP 70 mg, administered: 10/31/2016 2:38:00 AM Zofran [IVP] IVP 4 mg, administered: 10/31/2016 4:22:00 AM The following Medications were prescribed to the patient: None.
--- NOTE | 2016-10-31 23:10 | ED DISCHARGE INSTRUCTIONS ---
Patient: ARIELLA AYON General Instructions [facility] VisitID: [id number] [address] [place] [address] 61y, M Registration Date/Time: 10/30/2016 Changed mental status. Respiratory failure with hypoxemia and hypercapnia. Congestive heart failure. Hypotension. Renal insufficiency. (Electronically signed by Ceferino Shannon MD 10/31/2016 23:10)
--- NOTE | 2016-10-31 23:10 | ED MAR SUMMARY ---
..... Medication Administration Record [facility] [address] [place] [address] Patient: ARIELLA AYON Visit ID: [id number] 61y, M Weight: 71.6 kg Height/Length: 68 in BMI: 24 ALLERGIES: Aspirin, Codeine, Morphine and Related, Nanproxyn, Tylenol Start 23:37 10/30/2016 Peggy Rey R.N., Stop 23:56 10/30/2016 Peggy Rey R.N. Medication Administered: IV NS (SALINE), Dose: IV Fluids, Rate: 2000 mL/hr, Dispensed: 1000 mL bag, Site: #1 right hand. Medication Ordered: IV NS : initial bolus 500 mL (1000 mL/hr), then 125 mL/hr for 4h (NOW); Urgent. Start 23:45 10/30/2016 Peggy Rey R.N. Medication Administered: IV NS (SALINE), Dose: IV Fluids, Rate: 1000 mL/hr, Dispensed: 1000 mL bag, Site: #1 right hand. Medication Ordered: IV NS : initial bolus 500 mL (1000 mL/hr), then 125 mL/hr for 4h (NOW); Urgent. Given 00:15 10/31/2016 Peggy Rey R.N. Medication Administered: SUCCINYLCHOLINE [IVP], Dose: 70 mg IVP, Site: #2 left AC. Medication Ordered: Succinylcholine IV 70mg (HIGH ALERT MEDICATION). Given 00:23 10/31/2016 Peggy Rey R.N. Medication Administered: VERSED [IVP] (MIDAZOLAM HCL), Dose: 2 mg IVP over 30 second(s), Site: #2 left AC. Medication Ordered: Versed IV 2 mg (HIGH ALERT MEDICATION). Given 00:33 10/31/2016 Peggy Rey R.N. Medication Administered: KETAMINE [IVP], Dose: 70 mg IVP over 30 second(s), Site: #2 left AC. Medication Ordered: Ketamine IV 70 mg (HIGH ALERT MEDICATION). Given 00:57 10/31/2016 Peggy Rey R.N. Medication Administered: KETAMINE [IVP], Dose: 70 mg IVP over 30 second(s), Site: #2 left AC. Medication Ordered: Ketamine IV 70 mg (HIGH ALERT MEDICATION). Given 01:12 10/31/2016 Peggy Rey R.N. Medication Administered: KETAMINE [IVP], Dose: 70 mg IVP over 30 second(s), Site: #2 left AC. Medication Ordered: Ketamine IV 70 mg (HIGH ALERT MEDICATION). Given 01:36 10/31/2016 Peggy Rey R.N. Medication Administered: VERSED [IVP] (MIDAZOLAM HCL), Dose: 2 mg IVP over 60 second(s), Site: #1 right hand. Medication Ordered: Versed IV 2 mg (HIGH ALERT MEDICATION). Given 01:57 10/31/2016 Peggy Rey R.N. Medication Administered: KETAMINE [IVP], Dose: 70 mg IVP over 30 second(s), Site: #3 right AC. Medication Ordered: Ketamine IV 70 mg (HIGH ALERT MEDICATION). Given 02:38 10/31/2016 Angelito Nieves R.N. Medication Administered: KETAMINE [IVP], Dose: 70 mg IVP over 2 minute(s), Site: #3 right AC. Medication Ordered: Ketamine IV 70 mg (HIGH ALERT MEDICATION, NOW). Given 04:22 10/31/2016 Peggy Rey R.N. Medication Administered: ZOFRAN [IVP] (ONDANSETRON HCL), Dose: 4 mg IVP over 30 second(s), Site: #2. Medication Ordered: Zofran IV 4 mg (NOW). Start 12:12 10/31/2016 Peggy Rey R.N. Medication Administered: DOPAMINE [IV DRIP], Dose: 4000 mcg Drip IV, Rate: 10 mcg/kg/min, Dispensed: 250 mL bag, Site: #1. Medication Ordered: DOPamine Drip IV : 10 mcg/kg/min (HIGH ALERT MEDICATION).
--- NOTE | 2016-10-31 23:10 | ED MAR SUMMARY ---
..... Medication Administration Record [facility] [address] [place] [address] Patient: ARIELLA AYON Visit ID: [id number] 61y, M Weight: 71.6 kg Height/Length: 68 in BMI: 24 ALLERGIES: Aspirin, Codeine, Morphine and Related, Nanproxyn, Tylenol Start 23:37 10/30/2016 Peggy Rey R.N., Stop 23:56 10/30/2016 Peggy Rey R.N. Medication Administered: IV NS (SALINE), Dose: IV Fluids, Rate: 2000 mL/hr, Dispensed: 1000 mL bag, Site: #1 right hand. Medication Ordered: IV NS : initial bolus 500 mL (1000 mL/hr), then 125 mL/hr for 4h (NOW); Urgent. Start 23:45 10/30/2016 Peggy Rey R.N. Medication Administered: IV NS (SALINE), Dose: IV Fluids, Rate: 1000 mL/hr, Dispensed: 1000 mL bag, Site: #1 right hand. Medication Ordered: IV NS : initial bolus 500 mL (1000 mL/hr), then 125 mL/hr for 4h (NOW); Urgent. Given 00:15 10/31/2016 Peggy Rey R.N. Medication Administered: SUCCINYLCHOLINE [IVP], Dose: 70 mg IVP, Site: #2 left AC. Medication Ordered: Succinylcholine IV 70mg (HIGH ALERT MEDICATION). Given 00:23 10/31/2016 Peggy Rey R.N. Medication Administered: VERSED [IVP] (MIDAZOLAM HCL), Dose: 2 mg IVP over 30 second(s), Site: #2 left AC. Medication Ordered: Versed IV 2 mg (HIGH ALERT MEDICATION). Given 00:33 10/31/2016 Peggy Rey R.N. Medication Administered: KETAMINE [IVP], Dose: 70 mg IVP over 30 second(s), Site: #2 left AC. Medication Ordered: Ketamine IV 70 mg (HIGH ALERT MEDICATION). Given 00:57 10/31/2016 Peggy Rey R.N. Medication Administered: KETAMINE [IVP], Dose: 70 mg IVP over 30 second(s), Site: #2 left AC. Medication Ordered: Ketamine IV 70 mg (HIGH ALERT MEDICATION). Given 01:12 10/31/2016 Peggy Rey R.N. Medication Administered: KETAMINE [IVP], Dose: 70 mg IVP over 30 second(s), Site: #2 left AC. Medication Ordered: Ketamine IV 70 mg (HIGH ALERT MEDICATION). Given 01:36 10/31/2016 Peggy Rey R.N. Medication Administered: VERSED [IVP] (MIDAZOLAM HCL), Dose: 2 mg IVP over 60 second(s), Site: #1 right hand. Medication Ordered: Versed IV 2 mg (HIGH ALERT MEDICATION). Given 01:57 10/31/2016 Peggy Rey R.N. Medication Administered: KETAMINE [IVP], Dose: 70 mg IVP over 30 second(s), Site: #3 right AC. Medication Ordered: Ketamine IV 70 mg (HIGH ALERT MEDICATION). Given 02:38 10/31/2016 Angelito Nieves R.N. Medication Administered: KETAMINE [IVP], Dose: 70 mg IVP over 2 minute(s), Site: #3 right AC. Medication Ordered: Ketamine IV 70 mg (HIGH ALERT MEDICATION, NOW). Given 04:22 10/31/2016 Peggy Rey R.N. Medication Administered: ZOFRAN [IVP] (ONDANSETRON HCL), Dose: 4 mg IVP over 30 second(s), Site: #2. Medication Ordered: Zofran IV 4 mg (NOW). Start 12:12 10/31/2016 Peggy Rey R.N. Medication Administered: DOPAMINE [IV DRIP], Dose: 4000 mcg Drip IV, Rate: 10 mcg/kg/min, Dispensed: 250 mL bag, Site: #1. Medication Ordered: DOPamine Drip IV : 10 mcg/kg/min (HIGH ALERT MEDICATION).
--- NOTE | 2016-10-31 23:10 | ED DISCHARGE INSTRUCTIONS ---
Patient: ARIELLA AYON General Instructions [facility] VisitID: [id number] [address] [place] [address] 61y, M Registration Date/Time: 10/30/2016 Changed mental status. Respiratory failure with hypoxemia and hypercapnia. Congestive heart failure. Hypotension. Renal insufficiency. (Electronically signed by Ceferino Shannon MD 10/31/2016 23:10)
--- NOTE | 2016-10-31 23:10 | ED MED RECONCILIATION SUMMARY ---
Patient: ARIELLA AYON Medication Reconciliation Report [facility] VisitID: [id number] [address] [place] [address] 61y, M Registration Date/Time: 10/30/2016 Weight: 71.6 kg Height/Length: 68 in. BMI: 24.0 ALLERGIES: Aspirin, Codeine, Morphine and Related, Nanproxyn, Tylenol The patient's Home Medications are listed below: THE FOLLOWING MEDICATIONS NEED TO BE RECONCILED: CloNIDine HCl Oral Furosemide Oral Lisinopril Oral Methadone HCl Oral Metoprolol Tartrate Oral Mirtazapine Oral Omeprazole Oral Potassimin Oral Prochlorperazine Maleate Oral Sertraline HCl Oral Theophylline Oral TiZANidine HCl Oral Zofran Oral The source(s) of the original Home Medication information: Not obtained. The following Medications were given to the patient in the Emergency Department: IV NS IV Fluids bolus 0, then 2000 mL/hr, administered: 10/30/2016 11:37:00 PM IV NS IV Fluids bolus 0, then 1000 mL/hr, administered: 10/30/2016 11:45:00 PM Succinylcholine [IVP] IVP 70 mg, administered: 10/31/2016 12:15:00 AM Dopamine [IV Drip] Drip IV bolus 0, then 4000 mcg 10 mcg/kg/min, administered: 10/31/2016 12:12:00 PM Versed [IVP] IVP 2 mg, administered: 10/31/2016 12:23:00 AM Ketamine [IVP] IVP 70 mg, administered: 10/31/2016 12:33:00 AM Ketamine [IVP] IVP 70 mg, administered: 10/31/2016 1:12:00 AM Ketamine [IVP] IVP 70 mg, administered: 10/31/2016 12:57:00 AM Versed [IVP] IVP 2 mg, administered: 10/31/2016 1:36:00 AM Ketamine [IVP] IVP 70 mg, administered: 10/31/2016 1:57:00 AM Ketamine [IVP] IVP 70 mg, administered: 10/31/2016 2:38:00 AM Zofran [IVP] IVP 4 mg, administered: 10/31/2016 4:22:00 AM The following Medications were prescribed to the patient: None.
== END 2016-10-31 04:15 | disposition short-term general hospital (02) ==
LOC: ED SRH 23:18
DX: J96.92 Respiratory failure, unspecified with hypercapnia (principal); R41.82 Altered mental status, unspecified; I11.0 Hypertensive heart disease with heart failure; I50.9 Heart failure, unspecified; I95.9 Hypotension, unspecified; N28.9 Disorder of kidney and ureter, unspecified; Z87.891 Personal history of nicotine dependence; Z88.5 Allergy status to narcotic agent; Z88.6 Allergy status to analgesic agent; Z88.8 Allergy status to other drugs, medicaments and biological substances